=== PATIENT | male | born 1990 | race Asian ===

== ENCOUNTER 2024-01-17 11:33 | Emergency (ER) | payer SELFPAY ==
[2024-01-17] MEDS ORDERED: HYDROCODONE/APAP 7.5/325 MG TAB ONE (12:05)
[2024-01-17] MEDS ORDERED: TDAP (DIPHTH,PERTUSS(ACELL),TET VAC) 0.5 ML VIAL IMVAC ONE (12:06)
--- NOTE | 2024-01-17 12:07 | RAD REPORT ---
EXAM DESCRIPTION: RAD - Hand Right 2 View - 01/17/2024 12:01 pm CLINICAL HISTORY: FB Pain and swelling COMPARISON: <Comparisons> FINDINGS: A fishhook is present in the distal fourth finger tuft region. The underlying bone appears intact. No fracture. No dislocation or soft tissue gas.
[2024-01-17] MEDS ORDERED: LIDOCAINE 2% MPF 5 ML VIAL ONE (12:14)
--- NOTE | 2024-01-17 12:39 | EDPHYS ---
Physician Documentation [facility] Name: Milena Carey Age: 33 yrs Sex: Male : 1990 Arrival Date: 01/17/2024 Time: 11:33 Bed 18 Private MD: ED Physician Nirmal Flowers HPI: 01/16 11:36 This 33 yrs old Male presents to ER via Unassigned with complaints of Finger Injury - jh7 fish hook. 11:36 33-year-old male with no past medical history presents to the ER for a fishhook jh7 embedded in his right fourth digit. The patient reports that it is a new hook, but that it has been in the water at [place] today. Denies significant pain and is still able to move the affected digit.. Historical: - Allergies: 11:58 No Known Allergies; nj1 - PMHx: 11:58 None; nj1 - Immunization history:: Last tetanus immunization: < 5 years ago. - Infectious Disease History:: Denies. - Social history:: Smoking status: Patient reports the use of cigarette tobacco products, smokes one-half pack cigarettes per day. ROS: 11:36 Constitutional: Per HPI jh7 Exam: 11:36 Constitutional: This is a well developed, well nourished patient who is awake, alert, jh7 and in no acute distress. Head/Face: Normocephalic, atraumatic. Neck: Trachea midline, no thyromegaly or masses palpated, and no cervical lymphadenopathy. Supple, full range of motion without nuchal rigidity, or vertebral point tenderness. No Meningismus. Cardiovascular: Regular rate and rhythm with a normal S1 and S2. No gallops, murmurs, or rubs. Normal PMI, no JVD. No pulse deficits. Respiratory: Lungs have equal breath sounds bilaterally, clear to auscultation and percussion. No rales, rhonchi or wheezes noted. No increased work of breathing, no retractions or nasal flaring. MS/ Extremity: Pulses equal, no cyanosis. Neurovascular intact. Full, normal range of motion. Neuro: Awake and alert, GCS 15, oriented to person, place, time, and situation. Cranial nerves II-XII grossly intact. Motor strength 5/5 in all extremities. Sensory grossly intact. Cerebellar exam normal. Normal gait. 11:36 Skin: Single barbed fishhook embedded in the palmar aspect right fourth digit in the pad of the finger.. Vital Signs: 11:49 BP 121 / 80; Pulse 93; Resp 18; Temp 97(TE); Pulse Ox 94% on R/A; Weight 100 kg; Height nj1 5 ft. 9 in. ; 12:30 BP 123 / 86; Pulse 83; Resp 16; Pulse Ox 96% on R/A; me1 11:49 Body Mass Index 32.28 (100.00 kg, 176 cm) [facility] Procedures: 12:22 Foreign Body Removal: a fishhook, from the right palmar aspect of distal phalanx of 7 right ring finger, by using a hemostat, incising to remove, Lidocaine 2%, Dressinx4s were used to dress the wound, The patient tolerated the removal well. MDM: 11:36 Patient medically screened. [facility] 12:48 Differential diagnosis: Retained foreign body in finger. Data reviewed: vital signs, [facility] nurses notes, radiologic studies, plain films. I considered the following discharge prescriptions or medication management in the emergency department Medications were administered in the Emergency Department. See MAR. Independent interpretation of the following test(s) in the Emergency Department X-Ray: My interpretation is [place] retained in right fourth digit. Counseling: I had a detailed discussion with the patient and/or guardian regarding the historical points, exam findings, and any diagnostic results supporting the discharge/admit diagnosis, to return to the emergency department if symptoms worsen or persist or if there are any questions or concerns that arise at home. Response to treatment: the patient's symptoms have markedly improved after treatment. 08 11:47 Order name: XRAY Hand RIGHT 2 View; Complete Time: 12:09 [facility] 08 12:11 Order name: Misc. Order: wire cutters, hemostats, chlorhex, gauze; Complete Time: 12:17 [facility] Administered Medications: 12:08 Drug: Hydrocodone-Acetaminophen PO (7.5 mg-325 mg) 1 tabs PO once Route: PO; me1 12:17 Follow up: Response: No adverse reaction; Pain is decreased [facility] [place] [place] 12:09 CANCELLED (boostrix availablee): tetanus-diphtheria toxoidadult 0.5 ml IM once; Provide co1 Vaccine Information Statement (VIS). 12:09 Drug: Boostrix Tdap IM 0.5 ml IM once; as a single dose Route: IM; Site: right deltoid; me1 12:17 Follow up: Response: No adverse reaction me1 12:21 Drug: Lidocaine Infiltration (2 %) 5 ml 5 ml Infiltration once; to bedside {Note: me1 Administered by CAMRON Wyman.} Volume: 5 ml; Route: Infiltration; 12:21 Follow up: Response: No adverse reaction; Pain is decreased me1 Disposition: 14:32 Co-signature as Attending Physician, Nirmal Flowers MD I reviewed the patient's care rt provided by the Advanced Practice Provider and agree with the diagnosis and treatment plan. Disposition Summary: 01/17/24 12:38 Discharge Ordered Notes: Location: Home [facility] Problem: new [facility] Symptoms: are resolved [facility] Condition: Stable [facility] Diagnosis - Superficial foreign body of right ring finger, initial encounter [facility] Followup: [facility] - With: Private Physician - When: 2 - 3 days - Reason: Recheck today's complaints Discharge Instructions: - Discharge Summary Sheet [facility] - [place] Removal [facility] Forms: - Medication Reconciliation Form [facility] - Antibiotic Education [facility] - Patient Portal Instructions [facility] - Leadership Thank You Letter [facility] Prescriptions: - Doxycycline Hyclate 100 mg Oral tablet - take 1 tablet ORAL route every 12 hours for 7 days; 14 tablet; Refills: 0, jh7 Product Selection Permitted Signatures: Dispatcher [employer] EDKatie Lentz FNP FNP [facility] Nirmal Flowers MD MD rt Nai Severino RN RN nj1 Vandana Bernstein RN RN me1 Corrections: (The following items were deleted from the chart) 11:47 11:47 Hand Right 2 View+[id number].[email or web address] ordered. [facility] 12:09 11:47 Tetanus-Diphtheria Toxoid IM Adult 0.5 ml IM once; Provide Vaccine Information co1 Statement (VIS). ordered. [facility]
--- NOTE | 2024-01-17 12:39 | ER ---
Nurse's Notes [facility] Name: Milena Carey Age: 33 yrs Sex: Male : 1990 Arrival Date: 01/17/2024 Time: 11:33 Bed 18 Private MD: Diagnosis: Superficial foreign body of right ring finger, initial encounter Presentation: 01/16 11:49 Chief complaint: Patient states: Fish hook stuck on right 4th digit. nj1 11:49 Coronavirus screen: Vaccine status: Patient reports being unvaccinated. Ebola Screen: nj No symptoms or risks identified at this time. Initial Sepsis Screen: Does the patient meet any 2 criteria? HR > 90 bpm. No. Patient's initial sepsis screen is negative. Does the patient have a suspected source of infection? No. Patient's initial sepsis screen is negative. Risk Assessment: Do you want to hurt yourself or someone else? Patient reports no desire to harm self or others. Onset of symptoms was January 17, 2024. 11:49 Method Of Arrival: Ambulatory [facility] 11:49 Acuity: JAMILA 3 [facility] Triage Assessment: 12:43 Injury Description: Puncture sustained to palmar aspect of distal phalanx of right ring me1 finger is through and through, fish hook. Historical: - Allergies: 11:58 No Known Allergies; nj1 - PMHx: 11:58 None; nj1 - Immunization history:: Last tetanus immunization: < 5 years ago. - Infectious Disease History:: Denies. - Social history:: Smoking status: Patient reports the use of cigarette tobacco products, smokes one-half pack cigarettes per day. Screenin:00 [facility] ED Fall Risk Assessment (Adult) History of falling in the last 3 months, me1 including since admission No falls in past 3 months (0 pts) Confusion or Disorientation No (0 pts) Intoxicated or Sedated No (0 pts) Impaired Gait No (0 pts) Mobility Assist Device Used No (0 pt) Altered Elimination No (0 pt) Score/Fall Risk Level 0 - 2 = Low Risk. Abuse screen: Denies threats or abuse. Nutritional screening: No deficits noted. Tuberculosis screening: No symptoms or risk factors identified. Assessment: 12:00 General: Appears comfortable, well groomed, well developed, well nourished, Behavior is me1 calm, cooperative, appropriate for age, Reports fish hook stuck in the pad of the right 4th finger. Pain: Complains of pain in palmar aspect of distal phalanx of right ring finger Pain does not radiate. Pain currently is 2 out of 10 on a pain scale. Quality of pain is described as tender, Pain began suddenly, Is continuous. Neuro: Level of Consciousness is awake, alert, obeys commands, Oriented to person, place, time, situation, Appropriate for age. Cardiovascular: Patient's skin is warm and dry. Respiratory: Airway is patent Trachea midline Respiratory effort is even, unlabored, Respiratory pattern is regular, symmetrical. GI: No signs and/or symptoms were reported involving the gastrointestinal system. : No signs and/or symptoms were reported regarding the genitourinary system. EENT: No signs and/or symptoms were reported regarding the EENT system. Derm: Skin is healthy with good turgor, Skin is pink, warm \T\ dry. Wound noted palmar aspect of distal phalanx of right ring finger Wound is fish hook. Musculoskeletal: No signs and/or symptoms reported regarding the musculoskeletal system. Vital Signs: 11:49 BP 121 / 80; Pulse 93; Resp 18; Temp 97(TE); Pulse Ox 94% on R/A; Weight 100 kg; Height nj1 5 ft. 9 in. ; 12:30 BP 123 / 86; Pulse 83; Resp 16; Pulse Ox 96% on R/A; me1 11:49 Body Mass Index 32.28 (100.00 kg, 176 cm) nj1 ED Course: 11:36 Patient arrived in ED. im 11:36 [facility]eno [facility] 11:36 Nirmal Flowers MD is Attending Physician. 7 11:58 Triage completed. nj1 12:00 Patient has correct armband on for positive identification. Bed in low position. Call ky1 light in reach. Provided Education on: POC. Verbalized understanding. . 12:00 No provider procedures requiring assistance completed. Patient did not have IV access ky1 during this emergency room visit. 12:02 XRAY Hand RIGHT 2 View In Process Unspecified. EDMS 12:05 Arm band placed on. nj1 12:08 Vandana Bernstein RN is Primary Nurse. ky1 12:38 Wound care: to puncture located on palmar aspect of distal phalanx of right ring finger me1 was cleaned with Hibiclens, dressed with 4X4s, cling. Administered Medications: 12:08 Drug: Hydrocodone-Acetaminophen PO (7.5 mg-325 mg) 1 tabs PO once Route: PO; me1 12:17 Follow up: Response: No adverse reaction; Pain is decreased me1 12:09 CANCELLED (boostrix availablee): tetanus-diphtheria toxoidadult 0.5 ml IM once; Provide me1 Vaccine Information Statement (VIS). 12:09 Drug: Boostrix Tdap IM 0.5 ml IM once; as a single dose Route: IM; Site: right deltoid; me1 12:17 Follow up: Response: No adverse reaction me1 12:21 Drug: Lidocaine Infiltration (2 %) 5 ml 5 ml Infiltration once; to bedside {Note: me1 Administered by CAMRON Wyman.} Volume: 5 ml; Route: Infiltration; 12:21 Follow up: Response: No adverse reaction; Pain is decreased me1 Medication: 12:39 VIS not applicable for this client. me1 Outcome: 12:38 Discharge ordered by . Segundo 12:47 Discharged to home ambulatory, me1 12:47 Condition: stable 12:47 Discharge instructions given to patient, Instructed on discharge instructions, follow up and referral plans. medication usage, Demonstrated understanding of instructions, follow-up care, medications, Prescriptions given X 1, 12:48 Patient left the ED. me1 Signatures: Dispatcher [employer] EDKatie Lentz FNP FNP Nai Mondragon RN RN mo1 Kelly Mitchell Vandana Bernstein RN RN me1 Corrections: (The following items were deleted from the chart) 12:43 12:39 General: Appears comfortable, well groomed, well developed, well nourished, me1 Behavior is calm, cooperative, appropriate for age, Reports fish hook stuck in the pad of the right 4th finger. me1 12:43 12:39 Pain: Complains of pain in palmar aspect of distal phalanx of right ring finger me1 Pain does not radiate. Pain currently is 2 out of 10 on a pain scale. Quality of pain is described as tender, Pain began suddenly, Is continuous, me1 12:43 12:39 Neuro: Level of Consciousness is awake, alert, obeys commands, Oriented to me1 person, place, time, situation, Appropriate for age me1 : 12:39 Cardiovascular: Patient's skin is warm and dry. me1 me1 : 12:39 Respiratory: Airway is patent Trachea midline Respiratory effort is even, me1 unlabored, Respiratory pattern is regular, symmetrical, me1 12: 12:39 GI: No signs and/or symptoms were reported involving the gastrointestinal system. me1 me1 : 12:39 : No signs and/or symptoms were reported regarding the genitourinary system. me1[facility] [place] [facility] 12:39 EENT: No signs and/or symptoms were reported regarding the EENT system. me1 me1 12:43 12:39 Derm: Skin is healthy with good turgor, Skin is pink, warm \T\ dry. Wound noted me1 palmar aspect of distal phalanx of right ring finger Wound is fish hook me1 12:43 12:39 Musculoskeletal: No signs and/or symptoms reported regarding the musculoskeletal me1 system. me1
[2024-01-17 13:04] VITALS: TEMP 97
[2024-01-17 13:05] VITALS: BP 123/86; O2SAT 96
== END 2024-01-17 12:48 | disposition home or self-care (01) ==
LOC: ER 11:33
PROC: 0HCFXZZ Extirpation of Matter from Right Hand Skin, External Approach (ICD-10-PCS; principal; 2024-01-17)
DX: S60.454A Superficial foreign body of right ring finger, initial encounter (principal)
CPT/HCPCS: 96372; 99284; J2001